=== PATIENT | female | born 1945 | race Caucasian/White ===

== ENCOUNTER → 2020-06-06 | Outpatient (CLI) | payer OTHER ==
[~2020-06-06] MED LIST: AIRBORNE TABLE1 EACH PO; ARTHRITIS PAIN650 M3 PO; COLLAGENASE1 EACH PO; ESOMEPRAZOLE MA40 MG PO; GLIPIZIDE ER5 MG PO; LEVOTHYROXINE112 MCG PO; LOSARTAN-HCTZ1 EAC3 PO; MELOXICAM15 MG PO; METOPROLOL SUCC25 M1 PO; PAROXETINE HCL20 MG PO
== END ==
LOC: LAB 10:53
PROVIDERS: ATTEND Orthopaedic Surgery
DX: Z01.812 Encounter for preprocedural laboratory examination (principal); Z20.822 Contact with and (suspected) exposure to COVID-19

== ENCOUNTER 2020-06-12 11:57 | Inpatient (IN) | payer OTHER ==
[2020-06-06 11:43] LABS: URINE BILIRUBIN NEGATIVE (Negative); URINE BLOOD NEGATIVE (Negative); URINE CLARITY CLEAR; URINE COLOR YELLOW; URINE GLUCOSE-RANDOM* NEGATIVE (Negative); URINE KETONES NEGATIVE (Negative); URINE LEUKOCYTES-REFLEX NEGATIVE (Negative); URINE NITRITE-REFLEX NEGATIVE (Negative); URINE PROTEIN (DIPSTICK) NEGATIVE (Negative); URINE SPECIFIC GRAVITY 1.025 (1.005-1.035); URINE UROBILINOGEN 0.2 E.U./dl (0.2-1.0)
[2020-06-06 11:50] LABS: HEMATOCRIT 32.8 % (37.0-47.0); HEMOGLOBIN 10.6 gm/dL (12.0-15.0); MCH 29.3 pg (26.0-34.0); MCHC 32.4 g/dL (28.0-37.0); MCV 90.2 fL (80.0-100.0); RBC 3.64 mil/uL (4.20-5.00); RDW 14.3 % (10.5-14.5); WBC 9.4 thou/uL (4.0-11.0)
[2020-06-06 12:06] LABS: PROTIME 10.7 Seconds (9.3-11.4)
--- NOTE | 2020-06-06 12:24 | EKG ---
[place] [address] [facility] [place] [address] ELECTROCARDIOGRAM REPORT Name: EVANGELINA CORREA Room #: [facility]#: [id number] Admission: Attend Phys: Bill Jeffries MD Discharge: Date of : 49 Report #: [id number] [facility] Test Date: 2020-06-06 Test Time: 11:40:16 Pat Name: EVANGELINA CORREA Department: Room: Gender: F Precision Lens Technician: SRIKANTH : 1945 Requested By: Bill Jeffries Order Number: [id number] MD: Geoffrey Carreon Measurements Intervals Britton Rate: 64 P: 27 WV: 170 QRS: 16 QRSD: 97 T: 3 QT: 419 QTc: 433 Interpretive Statements Sinus rhythm Abnormal R-wave progression, early transition Probable left ventricular hypertrophy No previous ECG available for comparison Electronically Signed On 06-06-2020 12:24:41 CDT by Geoffrey Carreon [email or web address] <ELECTRONICALLY SIGNED> By: Geoffrey Carreon MD, [facility] 06/06/20 1224 1140 1140 Geoffrey Carreon MD, FACC /EPI
[2020-06-06 13:07] LABS: ALBUMIN 4.3 g/dL (3.4-5.0); CALCIUM 9.4 mg/dL (8.5-10.1); CREATININE 1.4 mg/dL (0.6-1.0); POTASSIUM 4.8 mmol/L (3.5-5.1)
[2020-06-06 22:06] LABS: GLYCOHEMOGLOBIN (HGB A1C) 6.5 % (4.8-5.6)
[~2020-06-12] VITALS: Ht 157.5 cm; Wt 97.5 kg
[2020-06-12 12:45] VITALS: BP 157/58
[2020-06-12 16:45] VITALS: BP 158/67
[2020-06-12 17:30] VITALS: BP 166/81
[2020-06-12 19:44] VITALS: BP 123/50
--- NOTE | 2020-06-13 00:46 | NUR ---
ASSESSED AT START OF SHIFT. PT A&OX4. ADMISSION DONE AND PT ORIENTED TO THE UNIT. IV IN RT FA WITH FLUIDS INFUSING. CHRISSIE DRESSING, POLAR PACK AND SCD'S ON EXT. PT UP X1 TO BSC. NUMBNESS ON LEFT KNEE NOTED. EVENING MEDS GIVEN AND PT HEATHER IT WELL. 96% ON RA. FALL PREC IN PLACE AND CALL LIGHT AT REACH WILL CONT TO MONITOR.
[2020-06-13 04:36] VITALS: BP 145/71
[2020-06-13 06:07] LABS: HEMATOCRIT 27.6 % (37.0-47.0); MCH 29.7 pg (26.0-34.0); MCHC 32.6 g/dL (28.0-37.0); RBC 3.04 mil/uL (4.20-5.00); RDW 14.3 % (10.5-14.5); WBC 15.9 thou/uL (4.0-11.0)
[2020-06-13 07:43] VITALS: BP 139/55
--- NOTE | 2020-06-13 11:08 | NUR ---
Assumed pt care at 7am.Pt in bed resting and waiting for breakfast tray prior to getting out of bed today and walk with therapist.Assessment completed.vss. c/o left knee pain rated 5/10.Hydrocodone given with am meds and well tolerated with breakfast.Marleny Blair Mitering Machine Operator here,order noted.Pt will dc home later today after clearance from physical therapy.Polar pack to left knee.Will continue to monitir.
--- NOTE | 2020-06-13 11:10 | O ---
[facility] [place] [address] OPERATIVE REPORT Name: EVANGELINA CORREA Room #: 437-P [facility] Isabela Sánchez#: [id number] Admission: 06/12/20 Attend Phys: Bill Jeffries MD Discharge: Date of : 49 Report #: [id number] THIS REPORT FOR: cc: Rmomel Epstein James L. DO Abraham, Scott M. MD ~ DATE OF SERVICE: 06/12/2020 PREOPERATIVE DIAGNOSIS: Left knee osteoarthritis. POSTOPERATIVE DIAGNOSIS: Left knee osteoarthritis. PROCEDURE: Left total knee arthroplasty using Navio robotic assistant golf professional. SURGEON: Bill Jeffries MD. MITTEN SEWER: Marleny Blair PA-C. INDICATIONS FOR MITTEN SEWER: Throughout the case, extensive retraction and manipulation of the knee was required. This was afforded to me by my assistant golf professional. ANESTHESIA: LMA with an adductor canal block. IMPLANTS: Sandy and Nephew size 3 Journey II BCS cobalt chrome femur, a size 2 tibia, size 11 polyethylene, and size 32 patella. TOURNIQUET TIME: 55 minutes. ESTIMATED BLOOD LOSS: 25 mL. COMPLICATIONS: None. SPECIMENS: None. CONDITION UPON LEAVING THE OPERATING ROOM: Stable. INDICATIONS FOR PROCEDURE: The patient is a 75-year-old female with left knee osteoarthritis. She had failed conservative measures for this. and after discussion with her, she elected for left total knee arthroplasty. DESCRIPTION OF PROCEDURE: Risks, benefits, alternatives, and complications were discussed in detail with the patient including, but not limited to, risk of anesthesia, risk of damage to nerves, arteries, blood vessels, risk for infection, bleeding, risk for continued knee pain, need for reoperation. Informed consent was obtained from the patient. Left knee was appropriately [facility] [address] [place] [address] OPERATIVE REPORT Name: EVANGELINA CORREA Room #: 437-P [facility] Isabela Sánchez#: [id number] Admission: 06/12/20 Attend Phys: Bill Jeffries MD Discharge: Date of : 49 Report #: [id number] marked in the preoperative holding area. IV Ancef was given for preoperative antibiotics. Adductor canal block was placed by Anesthesia. She was brought to the operating room and placed in supine position on operating room table. LMA anesthesia was induced without complication. Tourniquet was placed on the left thigh. Left lower extremity was prepped and draped in normal sterile fashion. Timeout was performed properly identifying the patient and procedure as well as the instrumentation and implants. All in the operating room were in agreement. Left lower extremity was exsanguinated. Tourniquet was inflated. Tourniquet time was 55 minutes. Standard midline approach to knee was made with 10 blade through the skin. Dissection was taken down sharply to the fascia and deep flaps were developed medially and laterally. Fresh 10 blade was used to make a medial parapatellar arthrotomy and the knee was inspected. There was severe tricompartmental osteoarthritis. ACL and PCL were removed sharply. Reference pins were placed in the femur and the tibia, and the knee was digitally mapped using the [employer] robotic system. We sized a size 3 femur, a size 2 tibia, and a 10 spacer. After acceptance of the intraoperative plan, the distal femoral cut was made with a Navio bur. Distal femoral cutting block was pinned in place and chamfer cuts were made. Attention was turned to the tibia. Remainder of the menisci were removed with Bovie cautery. Tibial resection guide was pinned in place using Navio for placement and tibial resection was made. Flexion and extension gaps were then checked and found to have good balance medially and laterally in flexion and extension. Tibia was sized, found to be a size 2. A size 2 tibial trial was placed, pinned and punched. Size 3 femoral trial was placed and a box cut was made. This was then trialed with a size 10 and then a size 11 polyethylene. The size 11 polyethylene demonstrated full extension with 1-2 mm of laxity medially and laterally throughout range of motion of the knee. 9 mm of bone was resected from the posterior surface of the patella and a size 32 patellar trial button was placed. Knee was taken through range of motion, found to be stable, found to have good patellar tracking. Trial components were removed. Bone ends were thoroughly irrigated with normal saline. A final size 2 tibia, size 3 Journey II BCS cobalt chrome femur, and a size 32 patella were cemented in place using standard cementation techniques. While the cement cured, a periarticular injection consisting of morphine, ropivacaine, epinephrine, and Toradol was placed around the knee joint capsule. After the cement cured, tourniquet was deflated. Hemostasis was obtained with Bovie cautery. A final size 11 polyethylene was placed. A gram of vancomycin was placed deep in the joint. The fascia was closed with 0 Vicryl, skin was closed with 2-0 Vicryl, skin staple and a CHRISSIE dressing was applied. The patient tolerated this procedure well and went to recovery room under care of anesthesia postoperatively. <ELECTRONICALLY SIGNED> By: Bill Jeffries MD 06/13/20 1110 1626 1650 Bill Jeffries MD /nt
--- NOTE | 2020-06-13 13:20 | NUR ---
ASSESSMENT: CM REVIEWED CHART AND SPOKE WITH PATIENT. PT IS S/P L TKA. PT REPORTS THAT SHE LIVES IN A HOUSE ALONE. PT REPORTS ABOUT 2 STEPS TO ENTER THE HOME WITH NO STEPS INSIDE. PT REPORTS TAHT SHE HAS A WALKER AT HOME THAT SHE CAN USE. PT REPORTS THAT SHE HAS OUTPATIENT THREAPY ARRANGED AT [facility] TO BEGIN TOMORROW. PT IS HOPEFUL SHE WILL BE DISCHARGED TODAY AFTER WORKING WITH THERAPY THIS AFTERNOON. PT REPORTS SHE HAS FAMILY THAT CAN HELP WITH ERRANDS OR GROCERIES AND REPORTS HER DAUGHTER LIVES CLOSE. PT DOES NOT ANTICIPATE HAVING ANY NEEDS FROM CM.
[2020-06-13 19:55] VITALS: BP 132/54
--- NOTE | 2020-06-13 22:53 | NUR ---
ASSESSED AT START OF SHIFT. PT A&OX4 RATES PAIN /10. HYDROCODONE GIVEN. LOWER GRADE TEMP OF 99.4 TYLENOL PROVIDED. PT UP WITH ASSISTX1 TO THE BSC. CHRISSIE DRESSING, TEDHOSE AND SCD'S ON LOWER EXTREMITIES. FALL PREC IN PLACE AND CALL LIGHT AT REACH WILL CONT TO MONITOR.
[2020-06-14 04:30] VITALS: BP 148/52
[2020-06-14 04:33] LABS: HEMATOCRIT 28.6 % (37.0-47.0); HEMOGLOBIN 9.3 gm/dL (12.0-15.0); MCH 29.5 pg (26.0-34.0); MCHC 32.6 g/dL (28.0-37.0); MCV 90.5 fL (80.0-100.0); RBC 3.16 mil/uL (4.20-5.00); RDW 14.7 % (10.5-14.5)
[2020-06-14 08:00] VITALS: BP 115/51
--- NOTE | 2020-06-14 13:05 | NUR ---
ON-GOING ASSESSMENT: CM REVIEWED CHART AND SPOKE WITH PATIENT. PT IS WORRIED ABOUT GOING HOME SHE LIVES ALONE AND REPORTS SHE HAS BEEN TO A SWING BED IN THE PAST AT [facility] AND PREFERS TO DO THIS AGAIN. CM SPOKE WITH PHYSICAL THERAPIST WHO REPORTS SHE FEELS SHE WOULD BENEFIT FROM SNF. CM CONTACTED [facility] AND SPOKE WITH ARACELI CASANOVA [phone] ABOUT NEED/REQUEST FOR SWING BED AND FAXED REFERRAL TO HER AT [phone]. EDILBERTO STATING SHE WILL HAVE TO REVIEW WITH MD THERE AND SEEK INSURANCE AUTH. POSSIBLE DISCHARGE TO [facility] SWING BED PENDING INSURANCE (LIKELY NOT UNTIL WEDNESDAY). CM WILL CONTINUE TO FOLLOW TO ASSIST NEEDED. CM WAS ALSO CONTINUING TO WORK ON HH REFERRALS AND [facility] STATING THEY CANNOT ACCPET PATIENT. [facility] STATING THEY MAY NOT BE ABLE TO ACCEPT PATIENT BUT CM ASKED THEY RECONSIDER CM IS HAVING TROUBLE FINDING ANOTHER HH IN [place] THAT ACCEPTS [facility]. PATI STATING SHE REQUEST TO REREVIEW.
[2020-06-14 15:45] VITALS: BP 156/62
--- NOTE | 2020-06-14 17:26 | NUR ---
Assumed pt care this am. Pt is alert & oriented x4. Pt has IV site on R FA saline locked. Pt is up & assist x1. Pt has lea dressing, mick jenkins and scd. Pt is accucheck achs. Pt has low grade fever and given tylenol. Pt did not do well on PT during shift. Pt c/o of paim & given pain medication. Pt on the bed sleeping, side rails up, call light within reach. Will continue to monitor pt. Follow POC.
[2020-06-14 20:00] VITALS: BP 150/53
--- NOTE | 2020-06-15 02:58 | NUR ---
ASSUMED CARE OF PT AT 1900. PT IS A/O X4 AND IS UP WITH MINIMAL ASSISTANCE WITH A WALKER AND GB TO THE BSC. PT IS ON ROOM AIR. BP WAS ELEVATED. PT STATES THIS IS NORMAL FOR HER SHE HAS A HX OF HTN. TEMPERATURES HAVE BEEN IN THE 99'S. ENCOURAGED PT TO USE IS OFTEN AND TO TURN COUGH AND DEEP BREATHE FREQUENTLY. HS BS WAS 138 WITH NO INSULIN ORDERED. DRSG TO LEFT KNEE IS C/D/I. SCD'S, KASEY HOSE, AND POLAR PACK IN PLACE. C/O PAIN AT BEDTIME. PRN PAIN MEDICATION GIVEN DIRECTED. PT IS PROGRESSING TOWARDS PLAN OF CARE GOALS. WILL CONTINUE TO MONITOR.
[2020-06-15 05:23] LABS: HEMATOCRIT 28.3 % (37.0-47.0); HEMOGLOBIN 9.4 gm/dL (12.0-15.0); MCH 30.1 pg (26.0-34.0); MCHC 33.2 g/dL (28.0-37.0); MCV 90.7 fL (80.0-100.0); RBC 3.12 mil/uL (4.20-5.00); RDW 14.4 % (10.5-14.5); WBC 6.4 thou/uL (4.0-11.0)
[2020-06-15 08:52] VITALS: BP 141/77
[2020-06-15 16:10] VITALS: BP 115/58
--- NOTE | 2020-06-15 18:16 | NUR ---
ASSUMED PT CARE AROUND 0815. PT ALERT X ORIENTED X 4. ON ROOM AIR .VSS. HAD A BM TODAY. FALL PRECAUTION IN PLACE. CALL LIGHT IN REACH. WILL CALL FOR HELP. WILL CONT TO MONITOR.
[2020-06-15 20:26] VITALS: BP 138/61
[2020-06-15 20:30] VITALS: BP 138/61
--- NOTE | 2020-06-16 03:26 | NUR ---
Assumed pt care at 1900.A/OX4,VSS. Up with AX1,RW/GB to the bathroom. VSS. C/o pain to Left knee pain 07/29,polar pack in place;medicated per EMAR with relief reported. Pt had 3 BM's,continent of urine. CHRISSIE dsg C/D/I. SCD's/mick hose in place.Fall precautions in place,calls approp for help.Will continue to monitor pt.
[2020-06-16 04:32] VITALS: BP 147/66
[2020-06-16 12:07] VITALS: BP 115/58
--- NOTE | 2020-06-16 12:07 | NUR ---
ASSUMED PT CARE THIS AM. PT IS ALERT & ORIENTED X 4. PT HAS R FA SALINE LOCKED. PT IS ACCUCHECK. PT IS ROOM AIR. PT USES BEDSIDE COMMODE AND LAST BM WAS YESTERDAY. PT HAS CHRISSIE DRESSING ONTHE L KNEE, POLAR PACK AND KASEY HOSE, AND SCD. PT C/O OF PAIN. GIVEN PAIN MED. WILL CONTINUE TO MONITOR PT. PT ON THE BED SLEEPING, SIDE RAILS UP, CALL LIGHT WITHIN REACH. FOLLOW POC.
[2020-06-16 13:57] VITALS: BP 145/60
[2020-06-16 16:10] LABS: ABSOLUTE NEUTROPHILS 7.1 thou/uL (1.4-8.2); BASOPHILS 0.6 % (0.0-2.0); EOSINOPHILS 4.1 % (0.0-3.0); HEMOGLOBIN 9.8 gm/dL (12.0-15.0); LYMPHOCYTES 19.9 % (24.0-44.0); MCH 29.6 pg (26.0-34.0); MCHC 32.8 g/dL (28.0-37.0); MCV 90.2 fL (80.0-100.0); MONOCYTES 9.9 % (1.0-8.0); POLYS 65.5 % (36.0-66.0); RBC 3.32 mil/uL (4.20-5.00); RDW 14.4 % (10.5-14.5); WBC 10.9 thou/uL (4.0-11.0)
[2020-06-16 16:14] LABS: PLATELET COUNT 300 thou/uL (150-400)
[2020-06-16 16:17] LABS: CREATININE 1.2 mg/dL (0.6-1.0); POTASSIUM 4.2 mmol/L (3.5-5.1)
[2020-06-16 16:29] VITALS: BP 120/51
[2020-06-16 21:23] VITALS: BP 110/57
--- NOTE | 2020-06-17 03:11 | NUR ---
PT AMBULATING TO BATHROOM WITH ASSIST X1 AND IS TOLERATING FAIR. LORTAB PROVIDING PAIN RELIEF. RESTING COMFORTABLY. NO NEEDS VOICED. CALL LIGHT WITHIN REACH. FREQUENT OBSERVATION.
[2020-06-17 07:17] LABS: URINE BILIRUBIN NEGATIVE (Negative); URINE BLOOD NEGATIVE (Negative); URINE CLARITY CLEAR; URINE COLOR YELLOW; URINE GLUCOSE-RANDOM* NEGATIVE (Negative); URINE KETONES NEGATIVE (Negative); URINE LEUKOCYTES-REFLEX NEGATIVE (Negative); URINE NITRITE-REFLEX NEGATIVE (Negative); URINE PROTEIN (DIPSTICK) NEGATIVE (Negative); URINE UROBILINOGEN 0.2 E.U./dl (0.2-1.0)
[2020-06-17 07:20] VITALS: BP 118/53
--- NOTE | 2020-06-17 09:24 | NUR ---
Assumed care of pt at 0700. Pt a&ox4. Dressing c/d/i. Pain controlled with prn pain meds. Polar pack in place. UA sent to lab. No fever this am. Pt has good appetite this am. Call light within reach. Fall precautions in place. Will continue to monitor.
--- NOTE | 2020-06-17 13:36 | NUR ---
FAXED REFERRAL TO [facility] FOR AUTH FOR [facility] BED RECEIVED CONFIRMATION.
--- NOTE | 2020-06-17 15:31 | NUR ---
ON-GOING ASSESSMENT: CM REVIEWED CHART. CM SPOKE WITH PATI ALEXANDER AT [facility] WHO REPORTS THAT INSURANCE DENIED SNF AND PHYSICIAN HAS AN OPTION TO DO A PEER TO PEER BY CALLING [phone] OPT2 THEN OPT 5 BY 06/18/20 AT 1000AM. CM NOTIFIED PT AND PHYSICAL THERApy WORKED WITH PATIENT AND CLEARED HER TO GO HOME WITH OUTPT THERAPY. PT REPORTS GOING HOME WITH OUTPATIENT THERAPY WAS HER ORGINAL PLAN. PT REPORTS SHE NOW FEELS SAFE TO GO HOME WITH OUTPATIENT THERAPY AND HAS A FRIEND THAT CAN TAKE HER TO THERAPY FOR THE FIRST WEEK. PT REPORTS THAT SHE HOPES TO DO THIS AND ALSO HAS A LIFE ALERT THAT WAS DELIVERED TO HER HOME SHE CAN USE. PT REPORTS HER DAUGHTER LIVES ABOUT 15 MINS AWAY AND PT STATES SHE CAN HAVE SOMEONE STAY WITH HER IF NEEDED. PT IS HOPEFUL TO DISCHARGE HOME TODAY PENDING CLEARANCE FROM PHYSICIAN.
[2020-06-17 16:15] VITALS: BP 119/50
[2020-06-17 16:46] VITALS: BP 119/50
== END 2020-06-17 18:12 | disposition home or self-care (01) | DRG 470 ==
LOC: OR 11:57 → 4S 17:46
PROVIDERS: Internal Medicine; Orthopaedic Surgery Hand Surgery; ADMIT Orthopaedic Surgery; ATTEND Orthopaedic Surgery
DX: M17.12 Unilateral primary osteoarthritis, left knee (principal); I10 Essential (primary) hypertension; K21.9 Gastro-esophageal reflux disease without esophagitis; F32.9 Major depressive disorder, single episode, unspecified; E03.9 Hypothyroidism, unspecified; R50.82 Postprocedural fever; E78.5 Hyperlipidemia, unspecified; E66.01 Morbid (severe) obesity due to excess calories; E11.42 Type 2 diabetes mellitus with diabetic polyneuropathy; Z20.822 Contact with and (suspected) exposure to COVID-19; Z88.1 Allergy status to other antibiotic agents; Z88.5 Allergy status to narcotic agent; Z88.8 Allergy status to other drugs, medicaments and biological substances; Z68.39 Body mass index [BMI] 39.0-39.9, adult; Z90.710 Acquired absence of both cervix and uterus
CPT/HCPCS: 10102; 50010; 50101; 50415; 50954; 51130; 51225; 51320; 51412; 53000; 53078; 56527; 56528; 57095; 57103; 57110; 57127; 57180; 58239; 62110; 62900; 70005